=== PATIENT | male | born 1965 | race Caucasian/White ===

== ENCOUNTER 2019-06-16 22:57 | Emergency (ER) | payer OTHER, BC ==
--- NOTE | 2019-06-16 23:37 | EDM.PDOC ---
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 He was wearing protective eyeware at the time, but some debris got into his R eye. He thought he got everything out, but became aware this late pm of persistent irritation of the R eye with blinking. There was no blurring of vision, and no sxs affecting the L eye. He has tried no meds. ED ROS GENERAL - Review of Systems Review Of Systems: ROS reveals no pertinent complaints other than HPI. ED EXAM GENERAL W FULL EYE - Physical Exam Exam: See Below Exam Limited By: No Limitations General Appearance: Alert, WD/WN, No Apparent Distress Eye Exam: Right Eye: Conjunctival Injection, Foreign Body (R upper eyelid), Bilateral Eye: EOMI, Normal Fundi, Normal Inspection, PERRL Visual Acuity (R) 20/: 20 Visual Acuity (L) 20/: 20 With Correction: Yes Eyelids: Right: Foreign Body, Left: Normal Appearance, Bilateral: Lid Everted for Exam Conjunctiva & Sclera: Right: Injected, Left: Normal Appearance Cornea Exam: Bilateral: Normal Appearance Extraocular Movements: Bilateral: Intact Pupils: Normal Accommodation Pupillary Size: Bilateral: 4 mm Pupillary Reaction: Bilateral: Brisk Anterior Chamber: Left: Normal Appearance Posterior Chamber: Left: Normal Funduscopic Ears: Normal External Exam Nose: Normal Inspection Throat/Mouth: Normal Inspection Head: Normocephalic Neck: Normal Inspection Respiratory/Chest: Lungs Clear Cardiovascular: Regular Rate, Rhythm Neurological: Alert, Oriented, CN II-XII Intact, Normal Cognition, No Motor/ Sensory Deficits Psychiatric: Normal Affect, Normal Mood Skin Exam: Warm, Dry, Intact, Normal Color, No Rash Lymphatic: No Adenopathy ED EYE w/ Add Procedure - Additional/Other Procedure(s) Other (Free Text) Procedure(s) [Text1]: With patient consent, the R upper eyelid was inverted revealing a FB. This was removed with a cotton swab uneventfully. Patient tolerated procedure well. Course - Vital Signs Text/Narrative:: Patient improved following removal of R upper eyelid FB. Last Recorded V/S: Last Vital Signs Temp 36.9 C 06/16/19 23:06 Pulse 70 06/16/19 23:06 Resp 18 06/16/19 23:06 BP 135/82 06/16/19 23:06 Pulse Ox 94 L 06/16/19 23:06 Departure - Departure Time of Disposition: 23:33 Disposition: Home, Self-Care 01 Condition: Good Clinical Impression: Retained foreign body in right upper eyelid - Discharge Information *PRESCRIPTION DRUG MONITORING PROGRAM REVIEWED*: Not Applicable *COPY OF PRESCRIPTION DRUG MONITORING REPORT IN PATIENT CONSTANTIN: Not Applicable Instructions: Eye Foreign Body, [id number] Referrals: PCP,None [Primary Care Provider] - Forms: ED Department Discharge - Problem List & Annotations (1) Retained foreign body in right upper eyelid SNOMED Code(s): 87728768 Code(s): H02.811 - RETAINED FOREIGN BODY IN RIGHT UPPER EYELID Status: Acute Current Visit: Yes Annotation/Comment:: Local cares, activity as tolerated. - Problem List Review Problem List Initiated/Reviewed/Updated: Yes - Assessment/Plan Plan: Follow up with PCP if needed.
== END 2019-06-16 23:35 | disposition home or self-care (01) ==
LOC: FB.ED 22:57
DX: H02.811 Retained foreign body in right upper eyelid (principal)
CPT/HCPCS: 99282